=== PATIENT | female | born 1970 | race African-American/Black ===

== ENCOUNTER 2023-10-17 16:44 | Emergency (ER) | payer BC, SELFPAY ==
[2023-10-17 16:50] VITALS: BP 160/100; PULSE 108; RESP 20; TEMP 36.8; O2SAT 100
--- NOTE | 2023-10-17 17:25 | ECG_ITS ---
Measurements Intervals [place] Rate: 99 P: 52 [place]: 147 QRS: 82 QRSD: 83 T: 11 QT: 340 QTc: 438 Interpretive Statements SINUS RHYTHM MINIMAL Q WAVES- INFERIOR LEADS NONSPECIFIC T-WAVE ABNORMALITY- ANT/INF LEADS BORDERLINE ECG NO PREVIOUS ECG AVAILABLE FOR COMPARISON Electronically Signed On 10-17-2023 18:33:18 [employer] COLLECTOR by Cesar Maza D.O.
--- NOTE | 2023-10-17 17:26 | ED.RECABL ---
HPI - Recheck/Abnormal Lab/Rx General Chief Complaint: Recheck/Abnormal Lab/Rx Stated Complaint: high blood pressure x 4 hours, dizzy Time Seen by Provider: 10/17/23 16:58 History of Present Illness HPI narrative: 53 y/o F with s/p hysterectomy in 2019 reports for evaluation for elevated blood pressure readings today. Patient states she went to her PCP office 6 days ago for a checkup. Her blood pressure was found to be high at that time and she was told by her PCP that was elevated he wanted to keep an eye on it. She is scheduled in 6 months for a follow-up. She states that he did not advise her to start a blood pressure log. Patient states she has felt fine since her appointment, however today came home after going out to eat for breakfast and felt nauseous. States she took her blood pressure which was elevated to 143/98, then 147/99, then 158/115, then 162/104, then 159/107. patient states she was then concerned that her blood pressure cuff was then calibrated so she went to [facility] twice and it was 147/107 then 161/100. Patient states this worried her so she came to the ER for further evaluation. She is reporting a very mild tension type headache that she is rating it 2/10 with associated nausea and unsettled stomach . She denies diplopia, blurred vision, focal numbness or weakness, chest pain or shortness of breath, fever , syncope, head injury or trauma. She is endorsing some congestion. The patient is not being treated for hypertension. Related Data Home Medications Medication Instructions Recorded Confirmed fexofenadine 60 mg tablet (Ruby 60 mg PO Q12H 10/02/19 10/24/19 Allergy) Allergies Allergy/AdvReac Type Severity Reaction Status Date / Time No Known Allergies Allergy Verified 10/17/23 16:55 Review of Systems Review of Systems: CONSTITUTIONAL: Denies fever, chills, or sweats. EYES: Denies visual changes, redness, or discharge. ENT: See HPI CARDIOVASCULAR: Denies chest pain, palpitations, or edema. RESPIRATORY: Denies cough or dyspnea. GASTROINTESTINAL: Denies abdominal pain, nausea, vomiting, or diarrhea. GENITOURINARY: Denies dysuria or hematuria. SKIN: Denies rash or itching. MUSCULOSKELETAL: Denies back pain, joint pain, or myalgia. NEUROLOGIC: see HPI PSYCHIATRIC: Denies anxiety or depression. [facility] Past Medical History Medical History (Updated 10/17/23 @ 18:37 by Maame Ross PA-C) Anemia Dysmenorrhea Menorrhagia Surgical History Surgical History Fibroid uterus History of robot-assisted laparoscopic hysterectomy History of tubal ligation Family History Family History Father Family history of type 2 diabetes mellitus Mother Family history of type 2 diabetes mellitus Social History Social History Smoking status: Never smoker Alcohol intake: current Exam Narrative: GENERAL: Well-appearing, well-nourished, and in no acute distress. patient resting comfortably in exam bed. She is pleasant and conversational. HEAD: Normocephalic, atraumatic. EYES: PERRLA and EOMI. ENT: Nares clear, no rhinorrhea or epistaxis. Mucous membranes moist. Posterior pharynx without erythema, edema or tonsillar hypertrophy. Uvula is midline. Bilateral TMs are colón nonbulging with normal canals. NECK: Supple. No nuchal rigidity CHEST: Clear to auscultation. No respiratory distress. HEART: Regular rate and rhythm. No murmur heard. Normal peripheral pulses. ABDOMEN: Soft, nontender, nondistended, normal active bowel sounds. No guarding, rebound or rigidity. EXTREMITIES: Normal range of motion. No edema. SKIN: Warm, dry, no rash. NEURO: No focal deficits. Alert and oriented x3. Cranial nerves 2-12 intact. Strength 5/5 in BUE and BLE. Sensation intact throughout. Course Vital Signs Vital sign
[2023-10-17] MEDS: ACETAMINOPHEN 500 MG TABLET 1000 MG PO (17:49)
[2023-10-17] MEDS: diphenhydrAMINE HCl INJ 50 MG/ML VIAL 25 MG IV PUSH (17:50)
[2023-10-17] MEDS: PROCHLORPERAZINE EDISYLATE 10 MG/2 ML VIAL IV PUSH (17:50)
[2023-10-17] MEDS: SODIUM CHLORIDE 0.9% IV 1,000 ML 999 ML IV CONT (17:50)
[2023-10-17 18:01] VITALS: BP 152/96; PULSE 96; RESP 20; TEMP 36.4; O2SAT 100
[2023-10-17 18:08] LABS: Basophils Percent Auto 0.4 % (0.2-1.2); Eosinophils Percent Auto 0.5 % (0-4.4); Hemoglobin 13.3 g/dL (12.0-15.0); Immature Granulocyte Absolute 0.01 K/mm3 (0.00-0.031); Immature Granulocyte Percent A 0.1 % (0-0.5); Lymphocytes Absolute Auto 2.84 K/mm3 (0.9-3.2); Lymphocytes Percent Auto 37.5 % (18.3-44.2); Mean Corpuscular HGB Conc 31.7 g/dl (32-36); Mean Corpuscular Hemoglobin 29.6 pg (26-34); Mean Corpuscular Volume 93.5 fl (80-100); Mean Platelet Volume 10.1 fl (7.4-10.4); Monocytes Absolute Auto 0.4 K/mm3 (0.1-0.6); Monocytes Percent Auto 4.8 % (2.6-8.5); Neutrophils Absolute Auto 4.3 K/mm3 (1.3-6.7); Neutrophils Percent Auto 56.7 % (45.5-73.1); Platelet Count Result 252 k/mm3 (150-375); Red Blood Count 4.49 M/mm3 (4.2-5.4); Red Cell Distribution Width 12.5 % (11.5-14.5); White Blood Count 7.6 K/mm3 (4.5-10.0)
[2023-10-17 18:09] LABS: Appearance Urine Clear (Clear); Bilirubin Urine Negative (Negative); Blood Urine Negative (Negative); Color Urine Yellow (Yellow); Glucose Urine UA Negative (Negative); Ketones Urine Negative (Negative); Leukocyte Esterase Ur Negative LEU/UL (Negative); Nitrate Urine Negative (Negative); Protein Urine Negative (Negative); Specific Grav Ur 1.008 (1.001-1.035); Urobilinogen Urine 0.2 mg/dL (<2.0); pH Urine 7.5 (5.0-9.0)
[2023-10-17 18:14] LABS: Add Urine Microscopic? NO
[2023-10-17 18:19] LABS: Alanine Aminotransferase 32 U/L (6-35); Albumin Level 4.6 g/dL (3.5-5.1); Alkaline Phosphatase 118 U/L (38-126); Anion Gap 11 mmol/L (8-16); Aspartate Amino Transferase 37 U/L (14-36); Bilirubin,Total 0.8 mg/dL (0.2-1.3); Blood Urea Nitrogen 9 mg/dL (7-17); Calcium 9.8 mg/dL (8.4-10.2); Carbon Dioxide 28 mmol/L (22-30); Chloride 100 mmol/L (98-107); Estimated CRCL calculation 64 ml/min; Estimated Glomerular Filt Rate > 60; Glucose 114 mg/dL (65-110); Sodium 139 mmol/L (137-145)
[2023-10-17 18:34] VITALS: BP 141/81; PULSE 91; O2SAT 99
[2023-10-17] MEDS: KETOROLAC 15 MG/ML VIAL (*BKC) IV PUSH (18:43)
[2023-10-17 18:45] VITALS: BP 141/82; PULSE 87; RESP 17; O2SAT 93
== END 2023-10-17 19:09 | disposition home or self-care (01) ==
PROVIDERS: Emergency Provider Physician Assistant
DX: G44.201 Tension-type headache, unspecified, intractable (principal); R03.0 Elevated blood-pressure reading, without diagnosis of hypertension; Z86.2 Personal history of diseases of the blood and blood-forming organs and certain disorders involving the immune mechanism; Z90.710 Acquired absence of both cervix and uterus; R94.31 Abnormal electrocardiogram [ECG] [EKG]
CPT/HCPCS: 36415; 80053; 81003; 85025; 93005; 96361; 96374; 96375; 99284; A9270; J0780; J1200; J1885; J7030

== ENCOUNTER 2025-03-03 19:15 | Emergency (ER) | payer OTHER, SELFPAY ==
--- NOTE | 2025-03-03 19:28 | ED_ITS ---
HPI - Skin/Abscess/Foreign Bdy General Chief complaint: Skin/Abscess/Foreign Body Stated complaint: SCALP RASH Related Data Home Medications Medication Instructions Recorded Confirmed Last Taken Type aspirin 81 mg tablet,delayed 81 mg PO DAILY 01/16/25 01/16/25 Unknown History release atorvastatin 10 mg tablet (Lipitor) 10 mg PO DAILY 01/16/25 01/16/25 Unknown History hydrochlorothiazide 12.5 mg capsule 12.5 mg PO DAILY 01/16/25 01/16/25 Unknown History levocetirizine 5 mg tablet (Xyzal) 5 mg PO DAILY 01/16/25 01/16/25 Unknown History lisinopril 2.5 mg tablet 2.5 mg PO DAILY 01/16/25 01/16/25 Unknown History metformin 500 mg tablet 500 mg PO BID 01/16/25 01/16/25 Unknown History semaglutide 0.25 mg or 0.5 mg (2 0.25 mg subcut WEEKLY 01/16/25 01/16/25 Unknown History mg/3 mL) subcutaneous pen injector (Ozempic) Allergies Allergy/AdvReac Type Severity Reaction Status Date / Time No Known Allergies Allergy Verified 01/16/25 13:03 [facility] Past Medical History Medical History (Updated 01/16/25 @ 15:10 by Ana Hong APRN) Pre-diabetes Hypertension GERD (gastroesophageal reflux disease) Arthritis Allergies Dysmenorrhea Menorrhagia Anemia Surgical History Surgical History History of carpal tunnel surgery of right wrist History of carpal tunnel surgery of left wrist History of robot-assisted laparoscopic hysterectomy Fibroid uterus History of tubal ligation Family History Family History Father Family history of type 2 diabetes mellitus Mother Family history of type 2 diabetes mellitus Other Heart disease Hypertension Social History Social History Smoking status: Current some day smoker Tobacco type: cigars Alcohol intake: current Substance use: never Substance use type: does not use Do You Feel Safe in your Home?: Yes Lack of Transportation: No Lack of Food: Never True Current Housing: I Have Housing Concerned About Future Housing: No Difficulty Paying Gas/Electric Bills: No Difficulty Paying for Meds: No Currently Unemployed: No Education: Associate Degree Difficulty w/ Childcare or Family Care: No Discharge Plan Discharge Patient Language: Chadian Prescriptions: No Action levocetirizine [Xyzal] 5 mg tablet 5 mg PO DAILY aspirin 81 mg tablet,delayed release (DR/EC) 81 mg PO DAILY atorvastatin [Lipitor] 10 mg tablet 10 mg PO DAILY hydrochlorothiazide 12.5 mg capsule 12.5 mg PO DAILY lisinopril 2.5 mg tablet 2.5 mg PO DAILY metformin 500 mg tablet 500 mg PO BID Ozempic 0.25 mg or 0.5 mg (2 mg/3 mL) pen injector 0.25 mg subcut WEEKLY Rx Instructions: for 4 weeks Follow-up/Referrals: Luke,Shima [Other]
[2025-03-03 19:41] VITALS: BP 114/67; PULSE 93; RESP 16; TEMP 36.7; O2SAT 100
--- NOTE | 2025-03-03 19:48 | ED.SKABFB ---
HPI - Skin/Abscess/Foreign Bdy General Chief complaint: Skin/Abscess/Foreign Body Stated complaint: SCALP RASH Time Seen by Provider: 03/03/25 19:48 Source: patient Mode of arrival: ambulatory Limitations: no limitations History of Present Illness HPI narrative: 55-year-old female presented for complaint of a wound in the scalp. First noticed green drainage 3 days ago, none since. Endorses tenderness and itching to the scalp. States this started after washing her hair. Concerned for insect bite. Related Data Home Medications Medication Instructions Recorded Confirmed Last Taken Type aspirin 81 mg tablet,delayed 81 mg PO DAILY 01/16/25 03/03/25 Unknown History release atorvastatin 10 mg tablet (Lipitor) 10 mg PO DAILY 01/16/25 03/03/25 Unknown History hydrochlorothiazide 12.5 mg capsule 12.5 mg PO DAILY 01/16/25 03/03/25 Unknown History levocetirizine 5 mg tablet (Xyzal) 5 mg PO DAILY 01/16/25 03/03/25 Unknown History lisinopril 2.5 mg tablet 2.5 mg PO DAILY 01/16/25 03/03/25 Unknown History metformin 500 mg tablet 500 mg PO BID 01/16/25 03/03/25 Unknown History semaglutide 0.25 mg or 0.5 mg (2 0.25 mg subcut WEEKLY 01/16/25 03/03/25 Unknown History mg/3 mL) subcutaneous pen injector (Ozempic) Allergies Allergy/AdvReac Type Severity Reaction Status Date / Time No Known Allergies Allergy Verified 03/03/25 19:39 Review of Systems Review of Systems: CONSTITUTIONAL: Denies body aches, fever, chills, or sweats. EYES: Denies visual changes, redness, or discharge. ENT: Denies rhinorrhea, congestion CARDIOVASCULAR: Denies chest pain, palpitations, or edema. RESPIRATORY: Denies cough or dyspnea. GASTROINTESTINAL: Denies abdominal pain, nausea, vomiting, or diarrhea. SKIN: per HPI MUSCULOSKELETAL: Denies back pain, joint pain, or myalgia. NEUROLOGIC: Denies headache, numbness, tingling, or weakness. [facility] Past Medical History Medical History Pre-diabetes Hypertension GERD (gastroesophageal reflux disease) Arthritis Allergies Dysmenorrhea Menorrhagia Anemia Surgical History Surgical History History of carpal tunnel surgery of right wrist History of carpal tunnel surgery of left wrist History of robot-assisted laparoscopic hysterectomy Fibroid uterus History of tubal ligation Family History Family History Father Family history of type 2 diabetes mellitus Mother Family history of type 2 diabetes mellitus Other Heart disease Hypertension Social History Social History Smoking status: Current some day smoker Tobacco type: cigars Alcohol intake: current Substance use: never Substance use type: does not use Do You Feel Safe in your Home?: Yes Lack of Transportation: No Lack of Food: Never True Current Housing: I Have Housing Concerned About Future Housing: No Difficulty Paying Gas/Electric Bills: No Difficulty Paying for Meds: No Currently Unemployed: No Education: Associate Degree Difficulty w/ Childcare or Family Care: No Comments At time of signature, I have reviewed and agree with nursing past medical, surgical, social and family history unless otherwise noted. Please see nursing chart for further information. There is no relevant family history pertinent to the presenting complaint Exam Narrative: GENERAL: Well-appearing HEAD: Normocephalic, atraumatic. EYES: conjunctivae clear, and EOMI. ENT: Mucous membranes moist. Oropharynx without edema, erythema or lesions. NECK: Supple. No lymphadenopathy CHEST: Clear to auscultation. HEART: Regular rate and rhythm. SKIN: Warm, dry. right parietal scalp with approx 2cm area of erythema, tender, firm, no active drainage. NEURO: Alert and oriented x3. Course Course Emergency Course: Patient is aware of diagnosis, understands and agrees to treatment plan. Anticipatory guidance given. Patient agrees to follow-up as directed and is aware of reasons to seek care at the emergency department. Portions of this record may have been created with voice recognition software Level of Care: Express Care Visit Vital Signs Vital signs: Vital Signs Temperature 98.1 F 03/03/25 19:41 Pulse Rate 93 03/03/25 19:41 Respiratory Rate 16 03/03/25 19:41 Blood Pressure 114/67 03/03/25 19:41 Pulse Oximetry 100 03/03/25 19:41 Temperature 98.1 F 03/03/25 19:41 Pulse Rate 93 03/03/25 19:41 Respiratory Rate 16 03/03/25 19:41 Blood Pressure 114/67 03/03/25 19:41 Pulse Oximetry 100 03/03/25 19:41 Reviewed MDM - Skin/Abscess/Foreign Bdy MDM Narrative Medical decision making narrative: Discussed physical exam findings consistent with firm abscess to the parietal scalp. Advised supportive measures and signs/symptoms to go to the ER. Pt is appropriate for outpt treatment and f/u. Differential Diagnosis Differential diagnosis: Likely abscess of skin or subcutaneous tissue, viral exanthem, dermatophytosis, urticaria, herpes zoster, cellulitis, eczema, insect bites, impetigo and contact dermatitis Discharge Plan Discharge Clinical Impression: Abscess Patient Disposition: Home Condition: Stable Instructions: Antibiotic Form, Abscess (ED) Additional Instructions: You had an abscess drained today. You may shower and Cleanse area with warm soapy water Warm compresses at least 4 times a day to the site to help expel any additional drainage. Take antibiotic as directed Tylenol and ibuprofen every 8 hours for pain as needed Follow up with your primary care physician in 3 days for a wound check. Go to the Emergency Department immediately if you develop any of the following symptoms: Fevers, Increased redness, pain, or swelling around where your abscess was, generalized weakness or vomiting or any other concerns Patient Language: Irish Prescriptions: New cephalexin 500 mg capsule 500 mg PO Q6H 7 Days Qty: 28 0RF No Action levocetirizine [Xyzal] 5 mg tablet 5 mg PO DAILY aspirin 81 mg tablet,delayed release (DR/EC) 81 mg PO DAILY atorvastatin [Lipitor] 10 mg tablet 10 mg PO DAILY hydrochlorothiazide 12.5 mg capsule 12.5 mg PO DAILY lisinopril 2.5 mg tablet 2.5 mg PO DAILY metformin 500 mg tablet 500 mg PO BID Ozempic 0.25 mg or 0.5 mg (2 mg/3 mL) pen injector 0.25 mg subcut WEEKLY Rx Instructions: for 4 weeks Follow-up/Referrals: Luke,Shima [Other]
== END 2025-03-03 19:58 | disposition home or self-care (01) ==
PROVIDERS: Emergency Provider Nurse Practitioner Family
DX: L02.811 Cutaneous abscess of head [any part, except face] (principal); F17.290 Nicotine dependence, other tobacco product, uncomplicated; I10 Essential (primary) hypertension; K21.9 Gastro-esophageal reflux disease without esophagitis; R73.03 Prediabetes; M19.90 Unspecified osteoarthritis, unspecified site; Z79.82 Long term (current) use of aspirin
CPT/HCPCS: 99213; G0463